=== PATIENT | female | born 1995 | race Caucasian/White ===

== ENCOUNTER 2022-12-10 14:10 | Emergency (ER) | payer OTHER ==
[2022-12-10 14:44] VITALS: BP 114/55; PULSE 100; RESP 16; TEMP 98.5; BMI 19.5
[2022-12-10] MEDS ORDERED: DIPHTH,PERTUSS(ACELL),TET 0.5 ML DISP.SYRIN IM ONE ×2 (15:57→15:59)
== END 2022-12-10 17:28 | disposition home or self-care (01) ==
LOC: FER 14:10
PROC: 3E0234Z Introduction of Serum, Toxoid and Vaccine into Muscle, Percutaneous Approach (ICD-10-PCS; principal; 2022-12-10)
DX: L03.011 Cellulitis of right finger (principal); Z03.823 Encounter for observation for suspected inserted (injected) foreign body ruled out
CPT/HCPCS: 73630-TC-RT-FY; 90715; 99284-25

== ENCOUNTER 2023-12-25 12:15 | Emergency (ER) | payer OTHER ==
[2023-12-25 12:36] VITALS: BP 116/73; PULSE 94; RESP 15; TEMP 98.4; BMI 19.9
[2023-12-25] MEDS: SODIUM CHLORIDE 1,000 ML IV STA ×2 (13:50→15:15)
[2023-12-25 14:07] LABS: HEMATOCRIT 46.9 % (32.4-45.2); HEMOGLOBIN 15.7 G/dL (10.7-15.3); MCH 31.6 pg (25.7-33.7); MCHC 33.5 g/dl (32.0-36.0); MEAN CELL VOLUME 94.1 fl (80-96); MEAN PLT VOLUME 7.8 fl (7.5-11.1); PLATELET COUNT 362.7 10^3/uL (134-434); RBC 4.98 10^6/uL (3.60-5.2); RDW 13.5 % (11.6-15.6); WHITE BLOOD COUNT 8.2 10^3/uL (4.0-10.8)
[2023-12-25 14:12] LABS: PLATELET ESTIMATE ADEQUATE
[2023-12-25 14:34] LABS: ALBUMIN 4.7 g/dl (3.4-5.0); BILIRUBIN,TOTAL 0.3 mg/dl (0.2-1); CALCIUM 9.8 mg/dl (8.5-10.1); CREATININE 0.7 mg/dl (0.6-1.3); MAGNESIUM 2.3 mg/dL (1.8-2.4); PHOSPHOROUS 3.9 (2.5-4.9); POTASSIUM 4.3 mmol/L (3.5-5.1); TOT PROT 7.7 g/dl (6.4-8.2)
== END 2023-12-25 16:21 | disposition home or self-care (01) ==
LOC: FER 12:15
PROC: 3E0337Z Introduction of Electrolytic and Water Balance Substance into Peripheral Vein, Percutaneous Approach (ICD-10-PCS; principal; 2023-12-25)
PROC: 3E0337Z Introduction of Electrolytic and Water Balance Substance into Peripheral Vein, Percutaneous Approach (ICD-10-PCS; 2023-12-25)
DX: R53.81 Other malaise (principal); R42 Dizziness and giddiness; R19.7 Diarrhea, unspecified; R11.0 Nausea; R10.9 Unspecified abdominal pain; R53.1 Weakness; Z20.822 Contact with and (suspected) exposure to COVID-19
CPT/HCPCS: 0241U-QW; 36415; 80053; 81003; 81025; 82550; 83735; 84100; 84439; 84443; 85027; 87086; 93005; 99284-25

== ENCOUNTER 2024-03-05 10:50 | Emergency (ER) | payer OTHER ==
[2024-03-05] MEDS ORDERED: ACETAMINOPHEN INJECTION 100 ML IVPB ONE (11:32)
[2024-03-05] MEDS ORDERED: ONDANSETRON 4 MG/2 ML VIAL ONE (11:32)
[2024-03-05] MEDS: ACETAMINOPHEN 1000 MG/100 ML BAG IVPB ONE (11:59)
[2024-03-05] MEDS: SODIUM CHLORIDE 0.9% 500 ML INFUS.BAG IV ONE (11:59)
[2024-03-05] MEDS: ONDANSETRON 4 MG/2 ML VIAL IVPUSH ONE (12:01)
[2024-03-05 12:24] LABS: HCG,QUALITATIVE URINE Negative
[2024-03-05 12:27] LABS: HEMATOCRIT 43.1 % (32.4-45.2); HEMOGLOBIN 14.3 G/dL (10.7-15.3); MCH 31.2 pg (25.7-33.7); MCHC 33.2 g/dl (32.0-36.0); MEAN CELL VOLUME 94.1 fl (80-96); MEAN PLT VOLUME 8.9 fl (7.5-11.1); PLATELET COUNT 277.9 10^3/uL (134-434); RBC 4.58 10^6/uL (3.60-5.2); RDW 12.9 % (11.6-15.6); WHITE BLOOD COUNT 6.3 10^3/uL (4.0-10.8)
[2024-03-05 12:47] LABS: ALBUMIN 4.5 g/dl (3.4-5.0); BILIRUBIN,TOTAL 0.4 mg/dl (0.2-1); CALCIUM 9.8 mg/dl (8.5-10.1); CREATININE 0.6 mg/dl (0.6-1.3); POTASSIUM 4.3 mmol/L (3.5-5.1); TOT PROT 7.2 g/dl (6.4-8.2)
[2024-03-05 12:48] VITALS: BP 129/92; PULSE 105; RESP 18; TEMP 97.8; BMI 19.5
[2024-03-05] MEDS ORDERED: KETOROLAC TROMETHAMINE 15 MG/ML VIAL ONE (12:53)
[2024-03-05] MEDS: KETOROLAC TROMETHAMINE 15 MG/ML VIAL IVPUSH ONE ×2 (12:55→15:14)
[2024-03-05 13:04] LABS: PLATELET ESTIMATE ADEQUATE
[2024-03-05] MEDS ORDERED: KETOROLAC TROMETHAMINE 30 MG/1 ML VIAL ONE (15:11)
== END 2024-03-05 15:40 | disposition home or self-care (01) ==
LOC: FER 10:50
PROC: 3E033NZ Introduction of Analgesics, Hypnotics, Sedatives into Peripheral Vein, Percutaneous Approach (ICD-10-PCS; principal; 2024-03-05)
PROC: 3E0333Z Introduction of Anti-inflammatory into Peripheral Vein, Percutaneous Approach (ICD-10-PCS; 2024-03-05)
PROC: 3E033GC Introduction of Other Therapeutic Substance into Peripheral Vein, Percutaneous Approach (ICD-10-PCS; 2024-03-05)
PROC: 3E0333Z Introduction of Anti-inflammatory into Peripheral Vein, Percutaneous Approach (ICD-10-PCS; 2024-03-05)
DX: N20.1 Calculus of ureter (principal)
CPT/HCPCS: 36415; 74176-TC; 80053; 81003; 84703; 85027; 87086; 99284-25; J0131